=== PATIENT | male | born 1955 | race Caucasian/White ===

== ENCOUNTER 2023-12-04 09:21 | Emergency (ER) | payer MEDICARE ==
[2023-12-04 09:36] VITALS: BP 139/86; PULSE 57; TEMP 96.2; O2SAT 97
[2023-12-04] MEDS ORDERED: Hydromorphone 1 mg/ml Injection ONE (09:44)
[2023-12-04] MEDS ORDERED: TORAdol 30 mg Injection ONE (09:44)
[2023-12-04] MEDS ORDERED: Sodium Chloride 0.9% 1000 ML 1,000 ML ONE (09:44)
[2023-12-04] MEDS ORDERED: Zofran 4 MG/2 ML VIAL ONE (09:44)
[2023-12-04 09:46] LABS: BASOPHIL % 0.9 % (0.0-0.4); Basophil (Absolute #) 0.07 x10^3/uL (0-0.4); Eosinophil % 4.4 % (0.00-5.0); Eosinophil (Absolute #) 0.34 x10^3/uL (0-0.5); Hematocrit 45.2 % (42-50); Hemoglobin 15.5 g/dL (12.5-18.0); IMMATURE GRAN # 0.03 x10^3u/L (0.00-0.03); IMMATURE GRAN % 0.4 % (0.00-0.4); Lymphocyte (Absolute #) 2.34 x10^3/uL (1.0-4.6); Lymphocytes % 30.5 % (24.0-44.0); Mean Cell Volume 95.6 fL (78-100); Mean Corpuscular Hemoglobin 32.8 pg (26-32); Mean Corpuscular Hgb Concent. 34.3 g/dL (32-36); Mean Platelet Volume 9.6 fL (7.5-11.0); Monocyte (Absolute #) 0.59 x10^3/uL (0.0-1.3); Monocytes % 7.7 % (0.0-12.0); Neutrophil % 56.1 % (36.0-66.0); Platelet Count 205 x10^3/uL (150-450); Red Blood Count 4.73 x10^6/uL (4.1-5.6); White Blood Count 7.7 x10^3/uL (4.0-10.5)
[2023-12-04] MEDS: Zofran 4 MG/2 ML VIAL IV ONE (09:46)
[2023-12-04] MEDS: Sodium Chloride 0.9% 1000 ML 1,000 ML IV STA (09:46)
[2023-12-04] MEDS: TORAdol 30 mg Injection IV ONE (09:47)
[2023-12-04] MEDS ORDERED: SUBLIMAZE 100 MCG/2 ML ONE ×2 (09:49→11:41)
[2023-12-04] MEDS: SUBLIMAZE 100 MCG/2 ML IV ONE ×2 (09:50→11:42)
[2023-12-04] MEDS: Hydromorphone 1 mg/ml Injection IV ONE (09:55)
[2023-12-04 10:10] LABS: BILIRUBIN,TOTAL 0.7 mg/dL (0.2-1.3); Calcium 9.3 mg/dL (8.4-10.2); Creatinine 1 0.94 mg/dL (0.66-1.25); EST GLOMERULAR FILTRATION RATE 87.8 ML/MIN
[2023-12-04 10:12] LABS: ALBUMIN 4.3 g/dL (3.5-5.0); Potassium 4.1 mmol/L (3.5-5.1); Total Protein 7.7 g/dL (6.3-8.2)
[2023-12-04 10:13] LABS: ANION GAP 13.1 MEQ/L (5-15)
--- NOTE | 2023-12-04 11:08 | XRAY ---
CLINICAL HISTORY: pain COMPARISON: None TECHNIQUE: CT of the abdomen and pelvis was performed with axial images as well as sagittal and coronal reconstruction images without IV contrast. One of the following dose reduction techniques were utilized for this exam: Automated exposure control, adjustment of the mA and/or kV according to patient size, use of iterative reconstruction. FINDINGS: The obtained images of the lower chest revealed mild, gravity-dependent atelectatic changes of both lower lobes and clear costophrenic recesses. Normal liver size, contours, density and lobar proportion.Scattered hepatic calcifications are noted. No dilatation of intra or extrahepatic biliary tree. Unremarkable gallbladder without calcified stones or inflammatory changes. Scattered splenic calcifications are noted. Normal aortic calibre with mild atherosclerotic changes There is bilateral, perirenal fat stranding. There is non-obstructive stone in the lower pole calyx of left kidney, measuring 7 mm. There are 2, non-obstructive stones in the lower pole calyx of right kidney, measuring 7 and 4 mm. No evidence of renal cysts or apparent masses. There is a stone measuring 5 mm impacted in the pelvic portion of the left ureter, causing obstructive changes and subsequent proximal mild hydroureteronephrosis. Unremarkable urinary bladder. Clear mesenteric fat with unremarkable bowel loops. Uncomplicated sigmoid colon diverticulosis is noted. No sign of acute appendicitis. No abdominal or pelvic adenopathy, gross masses or collection. No pneumoperitoneum. Multiple calcified phleboliths are seen in the pelvis. Intact abdominal wall. No suspicious-looking bone lesion in the obtained bony structures IMPRESSION: 1. Bilateral, non-obstructive renal stones. 2. Obstructive left ureteric stone with mild hydronephrosis. 3. Hepato-splenic calcifications likely representing granulomatous disease. ER was called at at 09:57 AM [employer], and the results were communicated to Dr. Phillips. Electronically Signed by: Zoe Flores MD. (12/04/2023 11:04:09 EDT)
--- NOTE | 2023-12-04 11:27 | ERPHSYRPT ---
- History of Present Illness Time Seen by Provider: 12/04/23 09:35 Historian: patient Exam Limitations: no limitations Patient Subjective Stated Complaint: Pt c/o of not feeling well last night but then this morning he had left flank pain with nausea Triage Nursing Assessment: Pt brought to the ER by his , hypertensive, rates pain as 04/15, N&V, pulses normal, skin n/w/d, no difficulty breathing, no hx of kidney stones, A&O x3, walked into the ER with a stable gait, appears to be in moderate pain Physician History: Patient is a 68-year-old white male who presents with a complaint of left flank pain for almost 24 hours. His pain started in the left flank and is radiated down into the right groin area he has had nausea and vomiting he has had some sweats but no fever or chills.He has no history of ureteral stones. Timing/Duration: yesterday Activities at Onset: none Quality: stabbing, throbbing Abdominal Pain Onset Location: flank (Left flank) Pain Radiation: groin (Left groin) Associated Symptoms: diaphoresis, nausea, vomiting Previous symptoms: no prior history Allergies/Adverse Reactions: red dye Allergy (Verified 12/04/23 09:36) oxycodone [From OxyContin] Adverse Reaction (Verified 12/04/23 09:36) Home Medications: Amlodipine Besylate/Benazepril [Amlodipine-Benazepril 5-10 mg] 1 each PO DAILY 12/04/23 [History] Aspirin EC 81 mg [Ecotrin 81 mg] 81 mg PO DAILY 12/04/23 [History] Atorvastatin Calcium 40 mg PO DAILY 12/04/23 [History] Docusate Sodium [Stool Softener] 100 mg PO DAILY 12/04/23 [History] Ferrous Sulfate 325 mg PO DAILY 12/04/23 [History] Latanoprost [Xalatan] 1 drop OP DAILY 12/04/23 [History] Loratadine 10 mg [Claritin 10 mg] 10 mg PO DAILY 12/04/23 [History] Meloxicam 7.5 mg PO DAILY 12/04/23 [History] Metformin HCl Xr 500 mg [Glucophage XR 500 MG] 500 mg PO BID 12/04/23 [History] Mv-Mins/Folic/Lycopene/Ginkgo [One Daily For Men 50+ Adv Tab] 1 each PO DAILY 12/04/23 [History] timoloL maleate [Timolol Maleate] 1 drop OP DAILY 12/04/23 [History] Hx Influenza Vaccination/Date Given: Yes Travel Risk - International Travel Have you traveled outside of the country in past 3 weeks: No - Emerging Infectious Disease Are you exhibiting symptoms associated with any current EIDs: No - Review of Systems Constitutional: No Fever, No Chills Eyes: No Symptoms Ears, Nose, & Throat: No Symptoms Respiratory: No Cough, No Dyspnea Cardiac: No Chest Pain, No Edema, No Syncope Abdominal/Gastrointestinal: No Abdominal Pain, No Nausea, No Vomiting, No Diarrhea Genitourinary Symptoms: Flank Pain, Testicle Pain, No Dysuria Musculoskeletal: No Back Pain, No Neck Pain Skin: No Rash Neurological: No Dizziness, No Focal Weakness, No Sensory Changes Psychological: No Symptoms Endocrine: No Symptoms All Other Systems: Reviewed and Negative - Past Medical History Pertinent Past Medical History: Yes Neurological History: No Pertinent History Cardiac History: High Cholesterol, Hypertension, Other Respiratory History: No Pertinent History Endocrine Medical History: No Pertinent History Musculoskeletal History: Osteoarthritis Other Medical History: AORTIC ANEURYSM, L MMT S/P SCOPE. HX OF SHOTS FOR PAIN RELIEF. - Past Surgical History Past Surgical History: Yes Gastrointestinal: Hemorrhoidectomy Musculoskeletal: Joint Replacement, Orthopedic Surgery Other Surgical History: jamilah knees, chipped bone taken out of his neck and placed metal plates on both sides, jamilah carpal tunnel - Social History Smoking Status: Never smoker Exposure to second hand smoke: No Drug Use: none - Nursing Vital Signs Nursing Vital Signs: Initial Vital Signs Temperature 96.2 F 12/04/23 09:27 Pulse Rate 57 L 12/04/23 09:27 Blood Pressure 139/86 12/04/23 09:27 O2 Sat by Pulse Oximetry 97 12/04/23 09:27 Pain Scale Pain Intensity 8 - Physical Exam General Appearance: moderate distress Eye Exam: PERRL/EOMI, eyes nml inspection Ears, Nose, Throat Exam: normal ENT inspection, pharynx normal, moist mucous membranes Neck Exam: normal inspection, non-tender, supple, full range of motion Respiratory Exam: normal breath sounds, lungs clear, No respiratory distress Cardiovascular Exam: regular rate/rhythm, normal heart sounds Gastrointestinal/Abdomen Exam: tenderness Back Exam: normal inspection, point tenderness Extremity Exam: normal inspection, normal range of motion, pelvis stable Neurologic Exam: alert, oriented x 3, cooperative, normal mood/affect, nml cerebellar function, sensation nml, No motor deficits Skin Exam: normal color, warm, dry SpO2 Interpretation: normal SpO2: 97 O2 Delivery: Room Air - Course Nursing assessment & vital signs reviewed: Yes - CT Exams Abdomen/Pelvis CT Interpretation: Tele-radiologist Report (5 mm left ureteral stone) Ordered Tests: Active Orders 24 hr Category Date Time Status Clean Catch Urine Specimen STAT Care 12/04/23 09:33 Active IV Insertion STAT Care 12/04/23 09:33 Active ABDOMEN AND PELVIS W/0 CONTRAS [CT] Stat Exams 12/04/23 09:33 Completed CHEST 1 VIEW (PORTABLE) Stat Exams 12/04/23 09:33 Taken CBC W DIFF Stat Lab 12/04/23 09:40 Completed CMP Stat Lab 12/04/23 09:40 Completed LIPASE Stat Lab 12/04/23 09:40 Completed Lactic Acid Stat Lab 12/04/23 09:33 Completed UA W/RFX UR CULTURE Stat Lab 12/04/23 09:33 Ordered Urine Triage Profile Stat Lab 12/04/23 09:33 Ordered Medication Summary Discontinued Medications Generic Name Dose Route Start Last Admin Trade Name Jhonatan PRN Reason Stop Dose Admin Fentanyl Citrate 100 mcg 12/04/23 09:47 12/04/23 09:50 Fentanyl Citrate 100 Mcg/2 Ml* Vial IV 12/04/23 09:48 100 mcg STAT ONE Administration Fentanyl Citrate Confirm 12/04/23 09:49 Fentanyl Citrate 100 Mcg/2 Ml* Vial Administered 12/04/23 09:50 Dose 100 mcg .ROUTE .STK-MED ONE Hydromorphone HCl 1 mg 12/04/23 09:33 12/04/23 09:55 Hydromorphone 1 Mg/1ml Inj IV 12/04/23 09:34 Not Given STAT ONE Hydromorphone HCl Confirm 12/04/23 09:44 Hydromorphone 1 Mg/1ml Inj Administered 12/04/23 09:45 Dose 1 mg .ROUTE .STK-MED ONE Sodium Chloride 1,000 mls @ 999 mls/hr 12/04/23 09:33 12/04/23 09:46 Sodium Chloride 0.9% 1000 Ml IV 12/04/23 10:33 999 mls/hr .Q1H1M STA Administration Sodium Chloride Confirm 12/04/23 09:44 Sodium Chloride 0.9% 1000 Ml Administered 12/04/23 09:45 Dose 1,000 mls @ ud .ROUTE .STK-MED ONE Ketorolac Tromethamine 30 mg 12/04/23 09:45 12/04/23 09:47 Ketorolac Tromethamine 30 Mg/Ml Inj IV 12/04/23 09:46 30 mg STAT ONE Administration Ketorolac Tromethamine Confirm 12/04/23 09:44 Ketorolac Tromethamine 30 Mg/Ml Inj Administered 12/04/23 09:45 Dose 30 mg .ROUTE .STK-MED ONE Ondansetron HCl 4 mg 12/04/23 09:33 12/04/23 09:46 Ondansetron Hcl 4 Mg/2 Ml Vial IV 12/04/23 09:34 4 mg STAT ONE Administration Ondansetron HCl Confirm 12/04/23 09:44 Ondansetron Hcl 4 Mg/2 Ml Vial Administered 12/04/23 09:45 Dose 4 mg .ROUTE .STK-MED ONE Lab/Rad Data: Laboratory Result Diagrams 12/04/23 09:40 12/04/23 09:40 Laboratory Results 12/04/23 12/04/23 12/04/23 Range/Units 09:40 09:40 09:33 WBC 7.7 (4.0-10.5) x10^3/uL RBC 4.73 (4.1-5.6) x10^6/uL Hgb 15.5 (12.5-18.0) g/dL Hct 45.2 (42-50) % MCV 95.6 (78-100) fL MCH 32.8 H (26-32) pg MCHC 34.3 (32-36) g/dL RDW 13.0 (11.5-14.0) % Plt Count 205 (150-450) x10^3/uL MPV 9.6 (7.5-11.0) fL Gran % 56.1 (36.0-66.0) % Immature Gran % (Auto) 0.4 (0.00-0.4) % Nucleat RBC Rel Count 0.0 (0.00-0.1) % Eos # (Auto) 0.34 (0-0.5) x10^3/uL Immature Gran # (Auto) 0.03 (0.00-0.03) x10^3u/L Absolute Lymphs (auto) 2.34 (1.0-4.6) x10^3/uL Absolute Monos (auto) 0.59 (0.0-1.3) x10^3/uL Absolute Nucleated RBC 0.00 (0.00-0.01) x10^3u/L Lymphocytes % 30.5 (24.0-44.0) % Monocytes % 7.7 (0.0-12.0) % Eosinophils % 4.4 (0.00-5.0) % Basophils % 0.9 (0.0-0.4) % Absolute Granulocytes 4.30 (1.4-6.9) x10^3/uL Basophils # 0.07 (0-0.4) x10^3/uL Sodium 140 (135-145) mmol/L Potassium 4.1 (3.5-5.1) mmol/L Chloride 108 H (98-107) mmol/L Carbon Dioxide 23 (22-30) mmol/L Anion Gap 13.1 (5-15) MEQ/L BUN 15 (9-20) mg/dL Creatinine 0.94 (0.66-1.25) mg/dL Estimated GFR 87.8 ML/MIN Glucose 151 H (74-106) mg/dL Lactic Acid 2.0 (0.4-2.0) Calcium 9.3 (8.4-10.2) mg/dL Total Bilirubin 0.70 (0.2-1.3) mg/dL AST 35 (17-59) U/L ALT 36 (0-50) U/L Alkaline Phosphatase 88 (38-126) U/L Serum Total Protein 7.7 (6.3-8.2) g/dL Albumin 4.3 (3.5-5.0) g/dL Lipase 332 H (23-300) U/L - Progress Progress: unchanged, pain not gone completely Medical Desision Making - Independent Historian Additional History obtained from: Spouse - Diagnostic Testing Diagnostic test were ordered, analyzed, and reviewed by me: Yes Radiological Interpretation: Reviewed by me - Risk of complications Low Risk: Low risk of morbidity from additional dx testing or treatment - Departure Departure Disposition: Home Clinical Impression: Left ureteral stone Condition: Stable Critical Care Time: No Referrals: JACKSON GAUTAM MD [Primary Care Provider] - Follow up/PCP as directed Instructions: Kidney Stones (DC) Prescriptions: Hydrocodone/Acetaminophen [Hydrocodone-Acetamin 5-325 mg] 1 tab PO Q6HPRN PRN 3 Days #12 tablet MDD 4 PRN Reason: Pain Ondansetron ODT 4 MG [Zofran Odt 4 mg] 4 mg PO Q6H PRN PRN #10 tablet PRN Reason: Nausea Cephalexin Mh 500 mg [Keflex 500 mg] 500 mg PO TID #21 cap
--- NOTE | 2023-12-04 20:05 | XRAY ---
Indication: Pain. Comparison: None Portable apical lordotic chest slightly underinflated and clear. Heart not enlarged. Bony thorax intact with osteopenia, mild degenerative changes, and cervical fusion hardware.
== END 2023-12-04 12:01 | disposition home or self-care (01) ==
LOC: ED 09:21
DX: N20.1 Calculus of ureter (principal); R10.9 Unspecified abdominal pain; R11.2 Nausea with vomiting, unspecified; E78.5 Hyperlipidemia, unspecified; I10 Essential (primary) hypertension; Z79.891 Long term (current) use of opiate analgesic; Z79.84 Long term (current) use of oral hypoglycemic drugs; Z79.899 Other long term (current) drug therapy
CPT/HCPCS: 36415; 71045; 74176; 80053; 83605; 83690; 85025; 96374; 96375; 96376; 99284; J1170; J1885; J2405; J3010

== ENCOUNTER 2024-05-03 07:27 | Day surgery (SDC) | payer MEDICARE ==
[2024-05-03] MEDS ORDERED: Depo-Medrol 40 MG/ML IM ONE (07:28)
[2024-05-03] MEDS ORDERED: LIDOCAINE HCL 1% 50 MG/5 ML VL PF IJ ONE (07:28)
[2024-05-03] MEDS ORDERED: Sodium Chloride 0.9(Preservative Free) 10 ML IJ ONE (07:28)
[2024-05-03] MEDS ORDERED: DIPRIVAN 200 MG/20 ML IV ONE (08:43)
[2024-05-03] MEDS ORDERED: Lactated Ringers 1,000 ML IV ONE (09:30)
--- NOTE | 2024-05-03 10:28 | XRAY ---
Indication: Lumbar GAVIN. Intraoperative fluoroscopy was provided for 11 seconds. 2 digital spot image submitted for interpretation demonstrates posterior needle tip projecting posterior to lumbosacral junction. Small amount of contrast injected for needle tip placement. Correlate with intraoperative findings/report.
--- NOTE | 2024-05-03 12:27 | XRAY ---
11 seconds of fluoroscopy was used in surgery for a lumbar GAVIN.
== END 2024-05-03 09:15 | disposition home or self-care (01) ==
LOC: SDC-PAIN 07:27
PROVIDERS: ATTEND Psychiatry & Neurology Pain Medicine
DX: M54.16 Radiculopathy, lumbar region (principal); E11.9 Type 2 diabetes mellitus without complications
CPT/HCPCS: 62323; 72100; 77003; 82947; J2001; J2704; Q9966